=== PATIENT | female | born 1995 | race Two or more races ===

== ENCOUNTER 2021-08-17 17:21 | Inpatient (IN) | payer SELFPAY ==
[2021-08-17] VITALS (11 sets, daily range): BP systolic 107–149; BP diastolic 74–103; PULSE 72–122; RESP 14–22; TEMP 36.4–36.8; O2SAT 96–99; BMI 26.9
--- NOTE | ~2021-08-17 | XR_ITS ---
EXAMINATION: XR chest 2V DATE: 08/18/2021 09:49 INDICATION: Shortness of breath TECHNIQUE: Frontal and lateral views of the chest are obtained COMPARISON: 08/17/2021 FINDINGS: Interstitial and airspace opacities have nearly resolved. There is no pleural effusion or p neumothorax. The cardiomediastinal silhouette is normal. The visualized bones and soft tissues are un remarkable. IMPRESSION: 1. Improved interstitial and airspace opacities, likely improving pulmonary edema or atelectasis. Reviewed, dictated and finalized at location A. IMPRESSION: 1. Improved interstitial and airspace opacities, likely improving pulmonary nimco ma or atelectasis.
--- NOTE | ~2021-08-17 | CT_ITS ---
EXAMINATION: CT brain wo con DATE: 08/17/2021 17:50 INDICATION: overdose TECHNIQUE: Computed tomography (CT) of the head was performed without intravenous contrast. The mA wa s adjusted according to patient size. Iterative reconstruction technique was employed. The dose-lengt h product was 605.33 mGy-cm. COMPARISON: None FINDINGS: No acute intracranial hemorrhage or extra-axial fluid collection. No hydrocephalus, mass, or herniation. No acute ischemic infarct. Unremarkable dural venous sinus attenuation. No acute osseous abnormality. The aerated spaces are clear. IMPRESSION: No acute intracranial process. Reviewed, dictated and finalized at location K.
--- NOTE | ~2021-08-17 | XR_ITS ---
EXAMINATION: XR chest 1V portable Exam Date/Time: 08/17/2021 17:40 CDT CLINICAL HISTORY: overdose Comparison: None available. RESULT: Lines, tubes, and devices: None. Lungs and pleura: Hazy groundglass left upper and mid lung opacities, with more focal confluent airs pace disease in the left medial upper lung. Cardiomediastinal silhouette: Normal cardiomediastinal silhouette. Other: No acute osseous or upper abdominal finding. IMPRESSION: Left upper/mid lung atelectasis, edema, and/or aspiration. Reviewed, dictated and finalized at location K.
--- NOTE | 2021-08-17 17:29 | ECG_ITS ---
Measurements Intervals [place] Rate: 120 P: 23 [place]: 116 QRS: 45 QRSD: 106 T: 4 QT: 326 QTc: 462 Interpretive Statements SINUS TACHYCARDIA WITH SHORT [place] INTERVAL INCOMPLETE RIGHT BUNDLE BRANCH BLOCK BORDERLINE ST-T WAVE ABNORMALITY- ANTEROLAT/INF LEADS BASELINE ARTIFACT- I, II, III, AVL, AVF ABNORMAL ECG Electronically Signed On 08-17-2021 19:40:43 CDT by Jose L Shanks D.O.
--- NOTE | 2021-08-17 17:31 | ED.OVERDOSE ---
HPI - Overdose General Chief Complaint: Overdose Stated Complaint: altered mental status Time Seen by Provider: 08/17/21 17:28 Source: patient and EMS Mode of arrival: EMS Limitations: altered mental status History of Present Illness HPI Narrative: Pt found unresponsive in parking lot of nearby gas station. first responders found her not breathing and pulseless, started CPR and administered intranasal narcan. On EMS arrival pt still unresponsive, cpr in progress, pt not breathing and asystole on monitor. IV started and pt given narcan 2 mg IV while bagging and pt regained a pulse and started breathing on her owne and then became responsive. Pt says she took a pain pill, but repeats questions over and over. complaint: accidental overdose Context: Accidental Overdose: uncertain what happened Related Data Home Medications Medication Instructions Recorded Confirmed No Home Medications 08/17/21 08/17/21 Allergies Allergy/AdvReac Type Severity Reaction Status Date / Time No Known Allergies Allergy Verified 08/17/21 17:36 Review of Systems Review of Systems: All systems reviewed & are unremarkable except as noted in HPI and below ROS unobtainable: Yes unobtainable due to mental status Exam Const: General: no acute distress Orientation/consciousness: patient oriented x3 Other: repetitive questions HENMT: Head: normal to inspection Eyes: Conjunctivae: conjunctivae normal Pupils: Equal, round and reactive pupils present EOM: EOMs intact bilaterally Neck: Neck: normal visual inspection and no meningeal signs Chest: Chest palpation & inspection: normal inspection of the chest Resp: Effort & Inspection: normal respiratory effort Auscultation: clear to auscultation bilaterally Cardio: Rate: tachycardic GI: GI Palp: Yes Soft to palpation Auscultation: normal bowel sounds Skin: General skin exam: normal color Rashes: no rashes Neuro: General: no meningeal signs Cranial nerves: Yes Nystagmus not present Motor exam (neuro): 5/5 motor strength present throughout Other: asking repetitive questions, alert to person and time but not place Extrem: General: normal to inspection and no clubbing, cyanosis or edema Course Vital Signs Vital signs: Vital Signs Temperature 98.2 F 08/17/21 17:23 Pulse Rate 120 H 08/17/21 17:23 Respiratory Rate 16 08/17/21 17:23 Blood Pressure 144/103 H 08/17/21 17:23 Pulse Oximetry 99 08/17/21 17:23 Temperature 98.2 F 08/17/21 17:23 Pulse Rate 122 H 08/17/21 17:58 Respiratory Rate 18 08/17/21 17:58 Blood Pressure 149/90 H 08/17/21 17:58 Pulse Oximetry 99 08/17/21 17:58 MDM - Overdose Lab Data Result diagrams: 08/17/21 18:09 08/17/21 18:09 Labs: Lab Results 08/17/21 08/17/21 08/17/21 Range/Units 17:43 18:09 18:09 WBC 15.5 H (4.5-10.0) K/mm3 RBC 4.55 (4.2-5.4) M/mm3 Hgb 13.3 (12.0-15.0) g/dL Hct 40.6 (37.0-47.0) % MCV 89.2 (80-100) fl MCH 29.2 (26-34) pg MCHC 32.8 (32-36) g/dl RDW 12.5 (11.5-14.5) % Plt Count 152 (150-375) k/mm3 MPV 14.7 H (7.4-10.4) fl Immature Gran % (Auto) 0.8 H (0-0.5) % Neut % (Auto) 76.2 H (45.5-73.1) % Lymph % (Auto) 16.2 L (18.3-44.2) % Meagher % (Auto) 4.1 (2.6-8.5) % Eos % (Auto) 2.0 (0-4.4) % Baso % (Auto) 0.7 (0.2-1.2) % Lymph # (Auto) 2.51 (0.9-3.2) K/mm3 Meagher # (Auto) 0.6 (0.1-0.6) K/mm3 Eos # (Auto) 0.3 (0-0.3) K/mm3 Baso # (Auto) 0.1 (0.0-0.1) K/mm3 Abs Immat Gran (auto) 0.13 H (0.00-0.031) K/mm3 Absolute Neuts (auto) 11.8 H (1.3-6.7) K/mm3 Absolute Nucleated RBC 0.0 (0.0-0.012) K/mm3 Nucleated RBC % 0.0 (0.0-0.2) % % Immature Plt Fraction 24.7 H (0.9-11.2) % PT 13.4 (11.1-14.7) Seconds INR 1.1 APTT 24.2 (22.3-36.8) SECONDS Sodium (137-145) mmol/L Potassium (3.4-5.0) mmol/L Chloride (98-107) mmol/L Carbon Dioxide
[2021-08-17 17:46] LABS: Glucose Point of Care 69 mg/dl (65-105)
--- NOTE | 2021-08-17 18:21 | PC.NURSE ---
Patient attempted to give urine at this time without success, will attempt again later. patient declines straight cath
[2021-08-17 18:23] LABS: Basophils Absolute Auto 0.1 K/mm3 (0.0-0.1); Basophils Percent Auto 0.7 % (0.2-1.2); Eosinophils Absolute Auto 0.3 K/mm3 (0-0.3); Hematocrit 40.6 % (37.0-47.0); Hemoglobin 13.3 g/dL (12.0-15.0); Immature Granulocyte Absolute 0.13 K/mm3 (0.00-0.031); Immature Granulocyte Percent A 0.8 % (0-0.5); Immature Platelet Fraction Pct 24.7 % (0.9-11.2); Lymphocytes Absolute Auto 2.51 K/mm3 (0.9-3.2); Lymphocytes Percent Auto 16.2 % (18.3-44.2); Mean Corpuscular HGB Conc 32.8 g/dl (32-36); Mean Corpuscular Hemoglobin 29.2 pg (26-34); Mean Corpuscular Volume 89.2 fl (80-100); Mean Platelet Volume 14.7 fl (7.4-10.4); Monocytes Absolute Auto 0.6 K/mm3 (0.1-0.6); Monocytes Percent Auto 4.1 % (2.6-8.5); Neutrophils Absolute Auto 11.8 K/mm3 (1.3-6.7); Neutrophils Percent Auto 76.2 % (45.5-73.1); Platelet Count Result 152 k/mm3 (150-375); Red Blood Count 4.55 M/mm3 (4.2-5.4); Red Cell Distribution Width 12.5 % (11.5-14.5); White Blood Count 15.5 K/mm3 (4.5-10.0)
[2021-08-17 18:31] LABS: Alanine Aminotransferase 51 U/L (6-35); Albumin Level 4.6 g/dL (3.5-5.1); Alkaline Phosphatase 70 U/L (38-126); Anion Gap 10 mmol/L (8-16); Aspartate Amino Transferase 52 U/L (14-36); Bilirubin,Total 0.2 mg/dL (0.2-1.3); Blood Urea Nitrogen 12 mg/dL (7-17); Calcium 8.6 mg/dL (8.4-10.2); Carbon Dioxide 23 mmol/L (22-30); Chloride 105 mmol/L (98-107); Estimated CRCL calculation 83 ml/min; Estimated Glomerular Filt Rate > 60; Glucose 191 mg/dL (65-110); Potassium 3.4 mmol/L (3.4-5.0); Sodium 138 mmol/L (137-145)
[2021-08-17 18:32] LABS: INR 1.1; Prothrombin Time 13.4 Seconds (11.1-14.7)
[2021-08-17 18:33] LABS: Partial Thromboplastin Time 24.2 SECONDS (22.3-36.8)
[2021-08-17 18:38] LABS: Acetaminophen < 10 ug/mL (10-30); Ethanol < 10 mg/dL (<10); Salicylate < 1.0 mg/dL (2-20)
[2021-08-17] MEDS: SODIUM CHLORIDE 0.9% IV 1,000 ML 1000 ML (18:50)
[2021-08-17 20:06] LABS: SARS-CoV-2 RNA PCR Negative
--- NOTE | 2021-08-17 21:19 | ADMGEN ---
This patient, Lisa Sosa, was admitted to IMU Room 207-01 at 2100. Patient/family oriented to hospital policies and general routines including ID bracelet, bed and alarms, visiting hours, pain management, procedures, bathroom and other care routines, personal items, smoking policy, room service/diet, and visiting hours. Information on how to activate the Rapid Response Team has been discussed. Patient/Family are encouraged to report perceived risks to care and to ask questions if they do not understand what they are told or what they should do.
--- NOTE | 2021-08-17 21:52 | PC.NURSE ---
patient is extremely drowsy and keeps falling asleep during the admission process. patient is also demanding to leave ama, but is refusing to pick her up and wants her to stay. they are arguing on the phone. patient stated that she took only 1/2 xanex and nothing more. patient is refusing to give us a urine sample. when i asked her if her husbands name was john, she looked at me strange and stated no, then she was like ok, ok, ok. she was very defensive when asked any questions about family medical hx. her brother apparently a few days ago and she stated that he had a heart attack. i repeatedly explained that she had stopped breathing and her heart stopped beating. cpr had to be done, that this was very serious. she keeps saying that she is fine and wants to leave. she projective vomited all over herself, the bed and into the trash can which was not quite by her. she is still insisting on leaving and stated that she is fine. she speaks chilean. i am unable to understand what she is saying to her . she speaks [place]pri[place] to me but it is delayed and she has trouble coming up with words. i am unable to tell if this is a language barrier or from the cardiac arrest. she is not cooperative.
--- NOTE | 2021-08-17 22:06 | PC.NURSE ---
Dr Martinez, Tsering Jeffries charger operator nurse, Yadira Cowart subwarehouse supervisor are all aware of what is going on. just waiting to see if patient is leaving or staying.
[2021-08-17] MEDS: ONDANSETRON INJ 4 MG/2 ML VIAL IV PUSH (22:47)
[2021-08-18] VITALS (8 sets, daily range): BP systolic 110–121; BP diastolic 69–81; PULSE 65–83; RESP 15–18; TEMP 36.6–37.1; O2SAT 99–100
--- NOTE | 2021-08-18 00:08 | PM.IMHP ---
H&P: HPI History of Present Illness Date/Time: 08/18/21 00:08 Chief Complaint: Cardiac arrest. Narrative: This is a 26-year-old female with no significant past medical history, tobacco dependence 1 pack a day. Patient is from out of town and is visiting for his brother's . Patient was given ? nerve pill and when stopping for gas patient had a sudden loss of consciousness and collapsed to the ground and started CPR, EMS arrived patient was found to have a systole CPR efforts were continued patient had ROSC and was brought to the emergency room for further evaluation. At the time of my visit patient was awake alert and aware of situation however has no recollection of events she has been her usual state of health up until this moment. Patient denies any chest pain, shortness on breath, fevers, chills, rigors, no palpitations. Preliminary workup was significant for EKG with sinus tachycardia, chest x-ray with probable aspiration. Patient is being admitted for further evaluation management and treatment. Review of Systems Review of Systems: Syncope, collapse, cardiac arrest. Constitutional: Constitutional: Denies chills, Denies fatigue, Denies fever(s), Denies malaise, Denies night sweats and Denies poor appetite Eyes: Eyes: Denies change in vision ENT: Denies dysphagia, Denies vertigo, Denies dizziness, Denies nasal congestion, Denies nasal discharge, Denies nasal obstruction and Denies odynophagia Cardiovascular: Cardiovascular: Denies chest pain, Reports syncope, Denies pedal edema, Denies leg edema, Denies radiating jaw, neck or arm pain, Denies palpitations, Denies dyspnea on exertion and Denies orthopnea Respiratory: Respiratory: Denies cough, Denies excessive phlegm production and Denies dyspnea Gastrointestinal: Gastrointestinal: Denies abdominal pain, Denies dyspepsia, Denies heartburn, Denies nausea and Denies vomiting Genitourinary: Genitourinary: Denies dysuria Musculoskeletal: Musculoskeletal: Denies arthralgias and Denies joint swelling Integumentary/Breasts: Skin/Breast: Denies rash Neurologic: Denies focal weakness and Denies Sensory deficit (Neuro) Psychiatric: Psychiatric: Reports no additional psychiatric complaints and Reports as per HPI Endocrine: Endocrine: Denies cold intolerance, Denies fatigue, Denies flushing, Denies heat intolerance, Denies polyphagia, Denies polydipsia and Denies palpitations Hematologic/Lymphatic: Hematologic/Lymphatic: Reports no additional hematologic/lymphatic complaints and Reports as per HPI Allergic/Immunologic: Allergic/Immunologic: Reports no additional allergic/immunologic complaints and Reports as per HPI [facility] Family History Family History (Updated 08/17/21 @ 22:19 by Rita Connelly RN) Father Hypertension Sibling Myocardial infarct Social History Social History Smoking status: Never smoker Alcohol intake: current Substance use: never Spiritual care concerns: No Meds Home Medications and Allergies Home Medications Medication Instructions Recorded Confirmed Type No Home Medications 08/17/21 08/17/21 History Allergies Allergy/AdvReac Type Severity Reaction Status Date / Time No Known Allergies Allergy Verified 08/17/21 17:36 Vital Signs Vital Signs - 24 hr 08/17/21 17:23 08/17/21 17:39 08/17/21 17:58 Temperature 98.2 F Pulse Rate 120 H 122 H Respiratory Rate 16 19 18 Blood Pressure 144/103 H 149/90 H Pulse Oximetry 99 99 08/17/21 18:31 08/17/21 19:10 08/17/21 19:56 Temperature Pulse Rate 103 H 103 H 90 Respiratory Rate 14 22 H 16 Blood Pressure 115/102 H 137/88 114/75 Pulse Oximetry 96 98 98 08/17/21 20:50 08/17/21 21:00 08/17/21 21:15 Temperature 97.6 F Pulse Rate 89 85 79 Respiratory Rate 14 20 20 Blood Pressure 107/83 134/82 Pulse Oximetry 96 99 99 08/17/21 22:00 08/17/21 23:28 Temperature 97.9 F Pulse Rate 80 72 Respiratory Rate 18 Blood Pressure 124/74 Pulse Oxime
[2021-08-18] MEDS: ACETAMINOPHEN 500 MG TABLET 1000 MG PO (06:00)
[2021-08-18 09:18] LABS: Hematocrit 38.1 % (37.0-47.0); Hemoglobin 12.2 g/dL (12.0-15.0); Immature Platelet Fraction Pct 22.9 % (0.9-11.2); Mean Corpuscular Volume 90.5 fl (80-100); Mean Platelet Volume 14.4 fl (7.4-10.4); Platelet Count Result 120 k/mm3 (150-375); Red Blood Count 4.21 M/mm3 (4.2-5.4); Red Cell Distribution Width 12.7 % (11.5-14.5); White Blood Count 8.6 K/mm3 (4.5-10.0)
[2021-08-18 09:27] LABS: Alanine Aminotransferase 40 U/L (6-35); Albumin Level 4.1 g/dL (3.5-5.1); Alkaline Phosphatase 68 U/L (38-126); Anion Gap 7 mmol/L (8-16); Aspartate Amino Transferase 34 U/L (14-36); Bilirubin,Total 0.4 mg/dL (0.2-1.3); Blood Urea Nitrogen 10 mg/dL (7-17); Calcium 8.5 mg/dL (8.4-10.2); Carbon Dioxide 27 mmol/L (22-30); Chloride 104 mmol/L (98-107); Estimated CRCL calculation 108 ml/min; Estimated Glomerular Filt Rate > 60; Glucose 103 mg/dL (65-110); Potassium 3.6 mmol/L (3.4-5.0); Sodium 138 mmol/L (137-145)
[2021-08-18] MEDS: ONDANSETRON INJ 4 MG/2 ML VIAL IV PUSH (10:09)
--- NOTE | 2021-08-18 11:03 | PM.DS ---
DS: Admitting Diagnosis Discharge Date August 18, 2021 Admitting Diagnosis Cardiac arrest DS: Discharge Diagnosis Discharge Diagnosis (1) Overdose: Code(s): T50.901A - Poisoning by unspecified drugs, medicaments and biological substances, accidental (unintentional), initial encounter Status: Acute (2) Syncope and collapse: Code(s): R55 - Syncope and collapse Status: Acute Assessment and Plan: Likely secondary to substance ingestion. (3) Cardiac arrest: Code(s): I46.9 - Cardiac arrest, cause unspecified Status: Acute Assessment and Plan: Patient was in asystole likely secondary to substance ingestion. Obviously resuscitated and doing well. DS: Summary Hospital Course Reason for hospitalization: Cardiac arrest Hospital Course: 26-year-old female with no significant past medical history was brought into the ER after taking a nerve pill at a gas station and suddenly losing consciousness. started CPR and EMS arrived, found her in asystole and continued CPR until [place] occurred several minutes later. In the ER, the patient was alert and oriented and back to baseline mentation with total amnesia of the prior event. Review of systems was completely negative at that time. Reviewing the EMS notes, patient was given Narcan and this appeared to be what resolved her symptoms. Patient and apparently have no idea with the medication that she took was. She was observed overnight and telemetry showed no aberrations. Vital signs were completely within normal limits. Mentation remained normal. She was discharged in good condition and recommended to discontinue any further substances in follow-up with her family doctor if she has any concerns. Status at Discharge Functional status at discharge: independent ambulation Overall status at discharge: patient is back to baseline Time Spent with Patient Time attestation: Total time spent providing and/or coordinating discharge services: Greater than 30 minutes Time spent: Greater than 30 minutes DS: Data Data Completed and Pending Labs on day of discharge: Labs from last 24 hours 08/18/21 08/18/21 08/17/21 08:53 08:53 19:24 WBC 8.6 RBC 4.21 Hgb 12.2 Hct 38.1 MCV 90.5 MCH 29.0 MCHC 32.0 RDW 12.7 Plt Count 120 L MPV 14.4 H Immature Gran % (Auto) Neut % (Auto) Lymph % (Auto) Baker % (Auto) Eos % (Auto) Baso % (Auto) Lymph # (Auto) Baker # (Auto) Eos # (Auto) Baso # (Auto) Abs Immat Gran (auto) Absolute Neuts (auto) Absolute Nucleated RBC Nucleated RBC % % Immature Plt Fraction 22.9 H PT INR APTT Sodium 138 Potassium 3.6 Chloride 104 Carbon Dioxide 27 Anion Gap 7 L BUN 10 Creatinine 0.60 L Estim Creat Clear Calc 108 Estimated GFR > 60 Glucose 103 POC Capillary Glucose Calcium 8.5 Total Bilirubin 0.4 AST 34 ALT 40 H Alkaline Phosphatase 68 Total Protein 7.0 Albumin 4.1 Salicylates Acetaminophen Ethyl Alcohol SARS-CoV-2 RNA (RT-PCR) Negative 08/17/21 08/17/21 08/17/21 18:09 18:09 18:09 WBC RBC Hgb Hct MCV MCH MCHC RDW Plt Count MPV Immature Gran % (Auto) Neut % (Auto) Lymph % (Auto) Baker % (Auto) Eos % (Auto) Baso % (Auto) Lymph # (Auto) Baker # (Auto) Eos # (Auto) Baso # (Auto) Abs Immat Gran (auto) Absolute Neuts (auto) Absolute Nucleated RBC Nucleated RBC % % Immature Plt Fraction PT 13.4 INR 1.1 APTT 24.2 Sodium 138 Potassium 3.4 Chloride 105 Carbon Dioxide 23 Anion Gap 10 BUN 12 Creatinine 0.80 Estim Creat Clear Calc 83 Estimated GFR > 60 Glucose 191 H POC Capillary Glucose Calcium 8.6 Total Bilirubin 0.2 AST 52 H ALT 51 H Alkaline Phosphatase 70 Total Protein 7.0 Albumin 4.6 Salicylates
[2021-08-18] MEDS: ACETAMINOPHEN 500 MG TABLET PO (11:09)
== END 2021-08-18 11:50 | disposition home or self-care (01) | DRG 812 ==
LOC: ANHED 18:52 → ANHIMU 19:55
PROVIDERS: Admitting Provider Internal Medicine; Emergency Provider Emergency Medicine; Visit Provider Student in an Organized Health Care Education/Training Program
DX: T50.901A Poisoning by unspecified drugs, medicaments and biological substances, accidental (unintentional), initial encounter (principal); I46.9 Cardiac arrest, cause unspecified; R55 Syncope and collapse; Z20.822 Contact with and (suspected) exposure to COVID-19
CPT/HCPCS: 36415; 70450; 71045; 71046; 80053; 80307; 82948; 85025; 85027; 85055; 85610; 85730; 93005; 96361; 96374; 99285; A9270; C9803; G0378; G0379; J2405; J7030; U0003; U0005